=== PATIENT | female | born 1965 | race Caucasian/White ===

== ENCOUNTER 2017-08-31 17:59 | Emergency (ER) | payer BC, MEDICAID ==
[2017-08-31 18:16] VITALS: BP 201/126
[2017-08-31] MEDS ORDERED: Lactated Ringers 1,000 ML IV ONE (18:39)
[2017-08-31] MEDS ORDERED: Sodium Chloride 0.9% 10 ML Syringe FLUSH PRN (18:40)
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
[2017-08-31] MEDS ORDERED: Sodium Chloride 0.9% 10 ML Syringe FLUSH ONE (20:16)
[2017-08-31] MEDS ORDERED: Sodium Chloride 0.9% 100 ML IV ONE (20:16)
[2017-08-31] MEDS ORDERED: Iopamidol 612 MG/ML 100 ML Bottle IV SCH (20:30)
[2017-08-31] MEDS ORDERED: Ondansetron 4 MG/2 ML SDV IVPUSH ONE (21:10)
[2017-08-31] MEDS ORDERED: fentaNYL 100 MCG/2 ML SDV IVPUSH ONE (21:10)
== END 2017-08-31 22:24 | disposition home or self-care (01) ==
LOC: JP.ED 17:59
DX: S22.21XA Fracture of manubrium, initial encounter for closed fracture (principal); S22.43XA Multiple fractures of ribs, bilateral, initial encounter for closed fracture; S42.031A Displaced fracture of lateral end of right clavicle, initial encounter for closed fracture; I10 Essential (primary) hypertension; F17.210 Nicotine dependence, cigarettes, uncomplicated; Z88.1 Allergy status to other antibiotic agents; V39.9XXA Occupant (driver) (passenger) of three-wheeled motor vehicle injured in unspecified traffic accident, initial encounter
CPT/HCPCS: 36415; 71260; 80048; 85025; 96361; 96374; 96375; 99285; J2405; J3010; J7030; J7050; J7120; Q9967

== ENCOUNTER 2017-09-05 12:00 | Emergency (ER) | payer SELFPAY ==
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
[2017-09-05] MEDS ORDERED: Sodium Chloride 0.9% 1,000 ML IV SCH (13:00)
[2017-09-05] MEDS ORDERED: Iopamidol 612 MG/ML 100 ML Bottle IV PRN (13:29)
[2017-09-05] MEDS ORDERED: Sodium Chloride 0.9% 10 ML Syringe FLUSH PRN (13:29)
[2017-09-05] MEDS ORDERED: Ondansetron 4 MG Tab.DIS PO ONE (13:35)
[2017-09-05 13:53] VITALS: BP 147/83
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
[2017-09-05] MEDS ORDERED: Bisacodyl 10 MG Supp RECTAL ONE (14:48)
== END 2017-09-05 15:17 | disposition home or self-care (01) ==
LOC: JP.ED 12:00
DX: K56.7 Ileus, unspecified (principal); I10 Essential (primary) hypertension; Z88.1 Allergy status to other antibiotic agents; Z88.5 Allergy status to narcotic agent; Z79.899 Other long term (current) drug therapy
CPT/HCPCS: 36415; 74177; 80048; 85025; 96360; 99284; A9270; J7030; J7050; Q9967

== ENCOUNTER 2017-09-05 22:09 | Emergency (ER) | payer MEDICAID ==
[2017-09-05 22:22] VITALS: BP 158/92
[2017-09-05] MEDS ORDERED: Simethicone 80 MG Tab.Chew PO ONE (23:21)
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
== END 2017-09-06 00:52 | disposition home or self-care (01) ==
LOC: JP.ED 22:09
DX: K56.7 Ileus, unspecified (principal); F17.210 Nicotine dependence, cigarettes, uncomplicated; Z88.5 Allergy status to narcotic agent; Z79.899 Other long term (current) drug therapy
CPT/HCPCS: 99284; A9270

== ENCOUNTER 2017-09-13 14:51 | Emergency (ER) | payer SELFPAY ==
[2017-09-13] MEDS ORDERED: Sodium Chloride 0.9% 10 ML Syringe FLUSH PRN (16:05)
[2017-09-13] MEDS ORDERED: Sodium Chloride 0.9% 1,000 ML IV SCH (16:15)
[2017-09-13] MEDS ORDERED: Sodium Chloride 0.9% 100 ML IV ONE (16:52)
[2017-09-13] MEDS ORDERED: Sodium Chloride 0.9% 10 ML Syringe FLUSH ONE (16:52)
[2017-09-13] MEDS ORDERED: Ondansetron 4 MG/2 ML SDV IVPUSH PRN (16:56)
[2017-09-13] MEDS ORDERED: Iopamidol 612 MG/ML 150 ML Bottle IV SCH (17:00)
[2017-09-13] MEDS: Sodium Chloride 0.9% 1,000 ML IV SCH ×2 (17:06→17:37)
[2017-09-13] MEDS ORDERED: Sodium Chloride 0.9% 1,000 ML IV ONE ×2 (17:23→17:34)
[2017-09-13] MEDS ORDERED: Norepinephrine 4 MG in Dextrose 5% in Water 246 ML IV SCH ×2 (18:00)
[2017-09-13] MEDS ORDERED: Potassium Chloride 40 MEQ in Premix Bag 1 BAG IV ONE (18:11)
[2017-09-13 18:20] VITALS: BP 86/44
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
== END 2017-09-13 18:42 ==
LOC: JP.ED 14:51
DX: I95.89 Other hypotension (principal); N17.9 Acute kidney failure, unspecified; E87.6 Hypokalemia; I10 Essential (primary) hypertension; F17.210 Nicotine dependence, cigarettes, uncomplicated; Z88.8 Allergy status to other drugs, medicaments and biological substances; Z79.899 Other long term (current) drug therapy
CPT/HCPCS: 36415; 71260; 74177; 80053; 82803; 83605; 85025; 85610; 85730; 86850; 86900; 86901; 86920; 86922; 96361; 96374; 96375; 99285; J2405; J3480; J7030; J7050; J7060

== ENCOUNTER 2017-11-05 11:39 | Emergency (ER) | payer MEDICAID ==
[2017-11-05] MEDS ORDERED: Ondansetron 4 MG/2 ML SDV IVPUSH ONE (13:57)
[2017-11-05] MEDS ORDERED: Potassium Chloride 20 MEQ in Premix Bag 1 BAG IV ONE (13:58)
[2017-11-05] MEDS ORDERED: Sodium Chloride 0.9% 1,000 ML IV SCH (14:00)
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
[2017-11-05 18:28] VITALS: BP 148/81
--- NOTE | 2017-11-06 09:39 | US ---
Abdomen Ltd CLINICAL HISTORY: Elevated liver enzymes FINDINGS: Real-time images show homogeneous echotexture throughout the liver. It is normal size and s hape. There is no biliary dilatation. There is normal flow in the portal vein. The gallbladder appear s slightly contracted. There is no mass or stones. Common bile duct measures 5 mm. Pancreas shows no mass. IMPRESSION: Slightly contracted gallbladder of questionable significance Normal appearing liver and biliary tree
== END 2017-11-05 18:35 | disposition home or self-care (01) ==
LOC: JP.ED 11:39
DX: E87.6 Hypokalemia (principal); E05.90 Thyrotoxicosis, unspecified without thyrotoxic crisis or storm; F41.9 Anxiety disorder, unspecified; E83.42 Hypomagnesemia; I10 Essential (primary) hypertension; F17.210 Nicotine dependence, cigarettes, uncomplicated; Z88.8 Allergy status to other drugs, medicaments and biological substances; Z79.899 Other long term (current) drug therapy
CPT/HCPCS: 36415; 76705; 80053; 81001; 83690; 83735; 84443; 84484; 85025; 93005; 96365; 96366; 96375; 99284; G0480; J2405; J3480; J7030; 93010

== ENCOUNTER 2017-11-17 17:55 | Inpatient (IN) | payer MEDICAID ==
[2017-11-17] MEDS ORDERED: Ondansetron 4 MG/2 ML SDV IVPUSH ONE (18:52)
[2017-11-17] MEDS ORDERED: Lactated Ringers 1,000 ML IV ONE ×2 (18:52→20:13)
[2017-11-17] MEDS: Sodium Chloride 0.9% 10 ML Syringe FLUSH PRN ×2 (19:03→21:06)
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
[2017-11-17] MEDS ORDERED: Sodium Chloride 0.9% 80 ML IV SCH (20:30)
[2017-11-17] MEDS ORDERED: Iopamidol 612 MG/ML 100 ML Bottle IV SCH (20:30)
[2017-11-17] MEDS ORDERED: Morphine 2 MG/ML Syringe IVPUSH PRN (22:47)
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
[2017-11-17] MEDS ORDERED: Magnesium Sulfate/Water 2 GM in Premix Bag 1 BAG IV ONE (23:00)
[2017-11-17] MEDS: Sodium Chloride 0.9% 1,000 ML IV SCH (23:25)
[2017-11-17] MEDS ORDERED: Ondansetron 4 MG/2 ML SDV IVPUSH PRN (23:36)
[2017-11-18] MEDS: Sodium Chloride 0.9% 1,000 ML IV SCH (05:31)
[2017-11-18] MEDS ORDERED: Naloxone 0.4 MG/ML SDV IV PRN (07:30)
[2017-11-18] MEDS ORDERED: HYDROmorphone/Normal Saline 15 MG/30 ML PCA IV PRN (07:30)
[2017-11-18] MEDS ORDERED: Bisacodyl 5 MG Tab PO ONE ×2 (09:00→20:00)
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
[2017-11-18] MEDS: Pantoprazole 40 MG Vial IVPUSH SCH ×2 (09:17→19:19)
[2017-11-18] MEDS: Dextrose 5%-0.9% NaCl with KCl 1,000 ML IV SCH ×2 (09:21→16:55)
[2017-11-18] MEDS: Magnesium Sulfate/Water 2 GM in Premix Bag 1 BAG IV SCH ×4 (10:27→21:38)
--- NOTE | 2017-11-18 10:50 | PCM.PN ---
- General Info Date of Service: 11/18/17 Functional Status: Reports: Pain Controlled, Tolerating Diet - Review of Systems General: Denies: Fever Gastrointestinal: Denies: Abdominal Pain, Diarrhea Systems Review Comment:: No acute events since the time of admission. The patient has not had any diarrhea or nausea. She reports very mild left-sided abdominal discomfort but does not call it pain. She has been tolerating her diet. She has not had any fevers. Sodium has improved since yesterday with hydration overnight. - Patient Data Vitals - Most Recent: Last Vital Signs Temp 36.4 C 11/18/17 07:00 Pulse 88 11/18/17 07:00 Resp 16 11/18/17 07:00 BP 136/86 11/18/17 07:00 Pulse Ox 97 11/18/17 07:05 Weight - Most Recent: 62.142 kg I&O - Last 24 Hours: Intake & Output 11/17/17 11/18/17 11/18/17 22:59 06:59 14:59 Intake Total 900 577 Output Total 1500 Balance -600 577 Lab Results Last 24 Hours: Laboratory Results - last 24 hr 11/17/17 11/17/17 11/17/17 Range/Units 19:06 19:06 19:06 WBC 7.3 (4.5-11.0) K/uL RBC 4.32 (3.30-5.50) M/uL Hgb 13.8 (12.0-15.0) g/dL Hct 40.2 (36.0-48.0) % MCV 93 (80-98) fL MCH 32 H (27-31) pg MCHC 34 (32-36) % Plt Count 256 (150-400) K/uL Neut % (Auto) 77 H (36-66) % Lymph % (Auto) 13 L (24-44) % [place] % (Auto) 10 H (2-6) % Eos % (Auto) 0 L (2-4) % Baso % (Auto) 0 (0-1) % ESR (0-25) mm/hr Sodium 120 L (140-148) mmol/L Potassium 4.1 (3.6-5.2) mmol/L Chloride 86 L (100-108) mmol/L Carbon Dioxide 23 (21-32) mmol/L Anion Gap 15.1 H (5.0-14.0) mmol/L BUN 7 D (7-18) mg/dL Creatinine 1.0 (0.6-1.0) mg/dL Est Cr Clr Drug Dosing 50.22 mL/min Estimated GFR (MDRD) 58 L (>60) Glucose 99 (74-106) mg/dL Calcium 8.0 L (8.5-10.1) mg/dL Phosphorus (2.5-4.9) mg/dL Magnesium 1.0 L (1.8-2.4) mg/dL Total Bilirubin 1.0 (0.2-1.0) mg/dL AST 52 H (15-37) U/L ALT 42 (12-78) U/L Alkaline Phosphatase 187 H (46-116) U/L Creatine Kinase (26-192) U/L Troponin I (0.000-0.056) ng/mL C-Reactive Protein (0.0-0.3) mg/dL Total Protein 6.6 (6.4-8.2) g/dL Albumin 2.9 L (3.4-5.0) g/dL Globulin 3.7 H (2.3-3.5) g/dL Albumin/Globulin Ratio 0.8 L (1.2-2.2) Lipase (73-393) U/L TSH, Ultra Sensitive 1.430 (0.358-3.740) uIU/mL Urine Color Urine Appearance Urine pH (4.5-8.0) Ur Specific [place] (1.008-1.030) Urine Protein (NEGATIVE) mg/dL Urine Glucose (UA) (NEGATIVE) mg/dL Urine Ketones (NEGATIVE) mg/dL Urine Occult Blood (NEGATIVE) Urine Nitrite (NEGATIVE) Urine Bilirubin (NEGATIVE) Urine Urobilinogen (NORMAL) mg/dL Ur Leukocyte Esterase (NEGATIVE) Urine RBC (0-5) Urine WBC (0-5) Ur Epithelial Cells Amorphous Sediment Urine Bacteria Urine Mucus Ur Random Creatinine (20.0-370.0) mg/dL Ur Random Sodium (20-110) mmol/L 11/17/17 11/17/17 11/17/17 Range/Units 19:13 19:49 20:44 WBC (4.5-11.0) K/uL RBC (3.30-5.50) M/uL Hgb (12.0-15.0) g/dL Hct (36.0-48.0) % MCV (80-98) fL MCH (27-31) pg MCHC (32-36) % Plt Count (150-400) K/uL Neut % (Auto) (36-66) % Lymph % (Auto) (24-44) % [place] % (Auto) (2-6) % Eos % (Auto) (2-4) % Baso % (Auto) (0-1) % ESR (0-25) mm/hr Sodium (140-148) mmol/L Potassium (3.6-5.2) mmol/L Chloride (100-108) mmol/L Carbon Dioxide (21-32) mmol/L Anion Gap (5.0-14.0) mmol/L BUN (7-18) mg/dL Creatinine (0.6-1.0) mg/dL Est Cr Clr Drug Dosing mL/min Estimated GFR (MDRD) (>60) Glucose (74-106) mg/dL Calcium (8.5-10.1) mg/dL Phosphorus (2.5-4.9) mg/dL Magnesium (1.8-2.4) mg/dL Total Bilirubin (0.2-1.0) mg/dL AST (15-37) U/L ALT (12-78) U/L Alkaline Phosphatase (46-116) U/L Creatine Kinase 73 (26-192) U/L Troponin I < 0.017 (0.000-0.056) ng/mL C-Reactive Protein (0.0-0.3) mg/dL Total Protein (6.4-8.2) g/dL Albumin (3.4-5.0) g/dL Globulin (2.3-3.5) g/dL Albumin/Globulin Ratio (1.2-2.2) Lipase (73-393) U/L TSH, Ultra Sensitive (0.358-3.740) uIU/mL Urine Color Yellow Urine Appearance Clear Urine pH 6.0 (4.5-8.0) Ur Specific [place] 1.010 (1.008-1.030) Urine Protein Negative (NEGATIVE) mg/dL Urine Glucose (UA) Normal (NEGATIVE) mg/dL Urine Ketones Negative (NEGATIVE) mg/dL Urine Occult Blood Negative (NEGATIVE) Urine Nitrite Negative (NEGATIVE) Urine Bilirubin Negative (NEGATIVE) Urine Urobilinogen Normal (NORMAL) mg/dL Ur Leukocyte Esterase Negative (NEGATIVE) Urine RBC 0-5 (0-5) Urine WBC 0-5 (0-5) Ur Epithelial Cells Rare Amorphous Sediment Not seen Urine Bacteria Rare Urine Mucus Not seen Ur Random Creatinine (20.0-370.0) mg/dL Ur Random Sodium (20-110) mmol/L 11/17/17 11/17/17 11/17/17 Range/Units 22:47 22:47 22:54 WBC (4.5-11.0) K/uL RBC (3.30-5.50) M/uL Hgb (12.0-15.0) g/dL Hct (36.0-48.0) % MCV (80-98) fL MCH (27-31) pg MCHC (32-36) % Plt Count (150-400) K/uL Neut % (Auto) (36-66) % Lymph % (Auto) (24-44) % [place] % (Auto) (2-6) % Eos % (Auto) (2-4) % Baso % (Auto) (0-1) % ESR 10 (0-25) mm/hr Sodium (140-148) mmol/L Potassium (3.6-5.2) mmol/L Chloride (100-108) mmol/L Carbon Dioxide (21-32) mmol/L Anion Gap (5.0-14.0) mmol/L BUN (7-18) mg/dL Creatinine (0.6-1.0) mg/dL Est Cr Clr Drug Dosing mL/min Estimated GFR (MDRD) (>60) Glucose (74-106) mg/dL Calcium (8.5-10.1) mg/dL Phosphorus (2.5-4.9) mg/dL Magnesium (1.8-2.4) mg/dL Total Bilirubin (0.2-1.0) mg/dL AST (15-37) U/L ALT (12-78) U/L Alkaline Phosphatase (46-116) U/L Creatine Kinase (26-192) U/L Troponin I (0.000-0.056) ng/mL C-Reactive Protein 0.32 H (0.0-0.3) mg/dL Total Protein (6.4-8.2) g/dL Albumin (3.4-5.0) g/dL Globulin (2.3-3.5) g/dL Albumin/Globulin Ratio (1.2-2.2) Lipase (73-393) U/L TSH, Ultra Sensitive (0.358-3.740) uIU/mL Urine Color Urine Appearance Urine pH (4.5-8.0) Ur Specific [place] (1.008-1.030) Urine Protein (NEGATIVE) mg/dL Urine Glucose (UA) (NEGATIVE) mg/dL Urine Ketones (NEGATIVE) mg/dL Urine Occult Blood (NEGATIVE) Urine Nitrite (NEGATIVE) Urine Bilirubin (NEGATIVE) Urine Urobilinogen (NORMAL) mg/dL Ur Leukocyte Esterase (NEGATIVE) Urine RBC (0-5) Urine WBC (0-5) Ur Epithelial Cells Amorphous Sediment Urine Bacteria Urine Mucus Ur Random Creatinine (20.0-370.0) mg/dL Ur Random Sodium 11 L (20-110) mmol/L 11/17/17 11/17/17 11/17/17 Range/Units 23:02 23:03 23:19 WBC (4.5-11.0) K/uL RBC (3.30-5.50) M/uL Hgb (12.0-15.0) g/dL Hct (36.0-48.0) % MCV (80-98) fL MCH (27-31) pg MCHC (32-36) % Plt Count (150-400) K/uL Neut % (Auto) (36-66) % Lymph % (Auto) (24-44) % [place] % (Auto) (2-6) % Eos % (Auto) (2-4) % Baso % (Auto) (0-1) % ESR (0-25) mm/hr Sodium (140-148) mmol/L Potassium (3.6-5.2) mmol/L Chloride (100-108) mmol/L Carbon Dioxide (21-32) mmol/L Anion Gap (5.0-14.0) mmol/L BUN (7-18) mg/dL Creatinine (0.6-1.0) mg/dL Est Cr Clr Drug Dosing mL/min Estimated GFR (MDRD) (>60) Glucose (74-106) mg/dL Calcium (8.5-10.1) mg/dL Phosphorus 3.9 (2.5-4.9) mg/dL Magnesium (1.8-2.4) mg/dL Total Bilirubin (0.2-1.0) mg/dL AST (15-37) U/L ALT (12-78) U/L Alkaline Phosphatase (46-116) U/L Creatine Kinase (26-192) U/L Troponin I (0.000-0.056) ng/mL C-Reactive Protein (0.0-0.3) mg/dL Total Protein (6.4-8.2) g/dL Albumin (3.4-5.0) g/dL Globulin (2.3-3.5) g/dL Albumin/Globulin Ratio (1.2-2.2) Lipase 63 L (73-393) U/L TSH, Ultra Sensitive (0.358-3.740) uIU/mL Urine Color Urine Appearance Urine pH (4.5-8.0) Ur Specific [place] (1.008-1.030) Urine Protein (NEGATIVE) mg/dL Urine Glucose (UA) (NEGATIVE) mg/dL Urine Ketones (NEGATIVE) mg/dL Urine Occult Blood (NEGATIVE) Urine Nitrite (NEGATIVE) Urine Bilirubin (NEGATIVE) Urine Urobilinogen (NORMAL) mg/dL Ur Leukocyte Esterase (NEGATIVE) Urine RBC (0-5) Urine WBC (0-5) Ur Epithelial Cells Amorphous Sediment Urine Bacteria Urine Mucus Ur Random Creatinine 16.7 L (20.0-370.0) mg/dL Ur Random Sodium (20-110) mmol/L 11/18/17 11/18/17 Range/Units 05:15 05:15 WBC 6.1 (4.5-11.0) K/uL RBC 3.58 (3.30-5.50) M/uL Hgb 11.5 L D (12.0-15.0) g/dL Hct 34.1 L (36.0-48.0) % MCV 95 (80-98) fL MCH 32 H (27-31) pg MCHC 34 (32-36) % Plt Count 244 (150-400) K/uL Neut % (Auto) 68 H (36-66) % Lymph % (Auto) 17 L (24-44) % [place] % (Auto) 14 H (2-6) % Eos % (Auto) 1 L (2-4) % Baso % (Auto) 1 (0-1) % ESR (0-25) mm/hr Sodium 130 L (140-148) mmol/L Potassium 3.8 (3.6-5.2) mmol/L Chloride 98 L (100-108) mmol/L Carbon Dioxide 25 (21-32) mmol/L Anion Gap 10.8 (5.0-14.0) mmol/L BUN 7 (7-18) mg/dL Creatinine 1.0 (0.6-1.0) mg/dL Est Cr Clr Drug Dosing 50.28 mL/min Estimated GFR (MDRD) 58 L (>60) Glucose 90 (74-106) mg/dL Calcium 7.8 L (8.5-10.1) mg/dL Phosphorus 3.8 (2.5-4.9) mg/dL Magnesium 2.1 D (1.8-2.4) mg/dL Total Bilirubin (0.2-1.0) mg/dL AST (15-37) U/L ALT (12-78) U/L Alkaline Phosphatase (46-116) U/L Creatine Kinase (26-192) U/L Troponin I (0.000-0.056) ng/mL C-Reactive Protein (0.0-0.3) mg/dL Total Protein (6.4-8.2) g/dL Albumin (3.4-5.0) g/dL Globulin (2.3-3.5) g/dL Albumin/Globulin Ratio (1.2-2.2) Lipase (73-393) U/L TSH, Ultra Sensitive (0.358-3.740) uIU/mL Urine Color Urine Appearance Urine pH (4.5-8.0) Ur Specific [place] (1.008-1.030) Urine Protein (NEGATIVE) mg/dL Urine Glucose (UA) (NEGATIVE) mg/dL Urine Ketones (NEGATIVE) mg/dL Urine Occult Blood (NEGATIVE) Urine Nitrite (NEGATIVE) Urine Bilirubin (NEGATIVE) Urine Urobilinogen (NORMAL) mg/dL Ur Leukocyte Esterase (NEGATIVE) Urine RBC (0-5) Urine WBC (0-5) Ur Epithelial Cells Amorphous Sediment Urine Bacteria Urine Mucus Ur Random Creatinine (20.0-370.0) mg/dL Ur Random Sodium (20-110) mmol/L Med Orders - Current: Current Medications Bisacodyl (Dulcolax) 10 mg PO ONETIME ONE Stop: 11/18/17 20:01 Glycopyrrolate (Glycopyrrolate) 0.4 mg IVPUSH ONCALL ONE Stop: 11/19/17 07:01 Hydromorphone HCl (Dilaudid Sales Management Trainee 15 Mg In Ns 30 Ml) 0 mg IV ASDIRECTED PRN; Protocol PRN Reason: [employer]MB[employer] PAIN CONTROL Potassium Chloride/Dextrose/Sod Cl (D5 Ns With 20 Meq Kcl) 1,000 mls @ 125 mls/ hr IV ASDIRECTED [facility] Last Admin: 11/18/17 09:21 Dose: 125 mls/hr Magnesium Sulfate 2 gm/ Premix 50 mls @ 25 mls/hr IV Q4H [facility] Stop: 11/20/17 07:59 Last Admin: 11/18/17 10:27 Dose: 25 mls/hr Naloxone HCl (Narcan) 0.1 mg IV ASDIRECTED PRN PRN Reason: decreased respiratory rate Ondansetron HCl (Zofran) 4 mg IVPUSH Q6H PRN PRN Reason: Nausea/Vomiting Last Admin: 11/18/17 03:34 Dose: 4 mg Pantoprazole Sodium (Protonix Iv) 40 mg IVPUSH Q12H [facility] Last Admin: 11/18/17 09:17 Dose: 40 mg Polyethylene Glycol (Miralax) 238 gm PO ONETIME ONE Stop: 11/18/17 17:01 Discontinued Medications Bisacodyl (Dulcolax) 10 mg PO ONETIME ONE Stop: 11/18/17 09:01 Last Admin: 11/18/17 09:16 Dose: 10 mg Lactated Ringer's (Ringers, Lactated) 1,000 mls @ 999 mls/hr IV BOLUS ONE Stop: 11/17/17 19:52 Last Admin: 11/17/17 19:03 Dose: 999 mls/hr Lactated Ringer's (Ringers, Lactated) 1,000 mls @ 500 mls/hr IV BOLUS ONE Stop: 11/17/17 22:12 Last Admin: 11/17/17 20:17 Dose: 500 mls/hr Sodium Chloride (Normal Saline) 80 mls @ 3 mls/sec IV ASDIRECTED [facility] Last Admin: 11/17/17 21:06 Dose: 3 mls/sec Magnesium Sulfate 2 gm/ Premix 50 mls @ 12.5 mls/hr IV ONETIME ONE Stop: 11/18/17 02:59 Last Admin: 11/18/17 00:24 Dose: 12.5 mls/hr Sodium Chloride (Normal Saline) 1,000 mls @ 150 mls/hr IV ASDIRECTED [facility] Last Admin: 11/18/17 05:31 Dose: 150 mls/hr Iopamidol (Isovue-300 (61%)) 100 ml IV . DIRECTED [facility] Stop: 11/18/17 08:00 Last Admin: 11/17/17 21:06 Dose: 100 ml Morphine Sulfate (Morphine) 2 mg IVPUSH Q2H PRN PRN Reason: Pain (severe 7-10) Ondansetron HCl (Zofran) 4 mg IVPUSH ONETIME ONE Stop: 11/17/17 18:53 Last Admin: 11/17/17 19:02 Dose: 4 mg Sodium Chloride (Saline Flush) 10 ml FLUSH ASDIRECTED PRN PRN Reason: Keep Vein Open Last Admin: 11/17/17 21:06 Dose: 10 ml - Exam Quality Assessment: No: Supplemental Oxygen General: Alert, Oriented, Cooperative, No Acute Distress Lungs: Normal Respiratory Effort Cardiovascular: Regular Rate, Regular Rhythm GI/Abdominal Exam: Normal Bowel Sounds, Soft, Non-Tender, No Distention, No Mass Extremities: No Pedal Edema Psy/Mental Status: Alert, Normal Affect - Problem List & Annotations (1) Hyponatremia SNOMED Code(s): 04832395 Code(s): E87.1 - HYPO-OSMOLALITY AND HYPONATREMIA Status: Acute Current Visit: Yes (2) Chronic diarrhea SNOMED Code(s): 895054975 Code(s): K52.9 - NONINFECTIVE GASTROENTERITIS AND COLITIS, UNSPECIFIED Status: Chronic Current Visit: Yes (3) Abdominal pain SNOMED Code(s): 77346895 Code(s): R10.9 - UNSPECIFIED ABDOMINAL PAIN Status: Acute Current Visit: Yes Qualifiers: Abdominal location: left upper quadrant Qualified Code(s): R10.12 - Left upper quadrant pain (4) Acquired hypothyroidism SNOMED Code(s): 622463280 Code(s): E03.9 - HYPOTHYROIDISM, UNSPECIFIED Status: Chronic Current Visit: Yes - Problem List Review Problem List Initiated/Reviewed/Updated: Yes - My Orders Last 24 Hours: My Active Orders 11/18/17 10:48 Discontinue Telemetry Monitoring [Cardiac Monitoring Discontinue] [RC] Click to Edit - Plan Plan:: ASSESSMENT AND PLAN - Chronic diarrhea - associated with some left-sided abdominal discomfort and bloating, especially after meals. CT scan was unremarkable. She did have a positive lactoferrin in her recent stool studies. Colonoscopy is planned for tomorrow. Differential would include inflammatory bowel disease such as Crohn's disease versus possibly biliary dyskinesia. -Colonoscopy prep today and colonoscopy tomorrow with Dr. Pike -Consider HIDA scan if colonoscopy unremarkable Hypovolemic hyponatremia - sodium level improved quickly with IV fluids overnight. -Continue gentle IV fluids today and repeat level in the morning Hypomagnesemia - likely related to chronic diarrhea. Level is improving with supplementation. -Additional supplementation as ordered Acquired hypothyroidism - no symptoms to suggest hypo-or hyper thyroid state. Most recent TSH was normal. Essential hypertension - blood pressure controlled with current use of ARB. Maintenance issues - - DVT prophylaxis - mechanical - GI prophylaxis - not indicated - Nutrition - clear liquids today and nothing by mouth after midnight Admission justification - patient was transitioned to inpatient status today for further workup and management. Disposition - anticipate discharge to home tomorrow Ruslan Sarabia M.D.
[2017-11-18] MEDS: Polyethylene Glycol 3350 Powder 238 GM Bot PO ONE ×2 (14:41→16:31)
[2017-11-19] MEDS: Dextrose 5%-0.9% NaCl with KCl 1,000 ML IV SCH (01:02)
[2017-11-19] MEDS: Magnesium Sulfate/Water 2 GM in Premix Bag 1 BAG IV SCH ×4 (01:02→11:11)
[2017-11-19] MEDS ORDERED: fentaNYL 100 MCG/2 ML SDV ONE (06:53)
[2017-11-19] MEDS ORDERED: Propofol 200 MG/20 ML SDV ONE (06:53)
[2017-11-19] MEDS ORDERED: Midazolam 1 MG/ML 2 ML SDV ONE (06:53)
[2017-11-19] MEDS ORDERED: Glycopyrrolate 0.2 MG/ML 2 ML SDV IVPUSH ONE (07:00)
--- NOTE | 2017-11-19 08:52 | PN ---
DATE OF SERVICE: 11/19/2017 HISTORY OF PRESENT ILLNESS: Mary is n.p.o. for an upper endoscopy and colonoscopy. She has completed her prep. Stools have been clear. Sodium this morning was 134 and hemoglobin was 11.2. REVIEW OF SYSTEMS: ABDOMEN: Denies any nausea or vomiting. No red or black stools. HEENT: Negative. NECK: Negative. CHEST: No chest pain, shortness of breath, fast or irregular heartbeat. LUNGS: Has some pain in the left rib area with deep breathing. : Negative. EXTREMITIES: Negative. SKIN: Without rash. NEURO: Intact. PSYCHIATRIC: Mood and affect appropriate. Remainder of review of systems negative for any pertinent positives and negatives. OBJECTIVE: GENERAL: Mary Garcia is a 52-year-old female, alert and orientated, and sitting inside of the bed. VITAL SIGNS: TPR 96.5, 113, 16, and blood pressure 171/106. HEENT: Negative. NECK: Supple. HEART: Regular rate and rhythm. LUNGS: Clear. ABDOMEN: Soft, nontender. EXTREMITIES: Negative. ASSESSMENT: 1. Chronic diarrhea. 2. Hyponatremia. 3. Abdominal pain. PLAN: Orders to be written post upper endoscopy and colonoscopy. We will evaluate p.r.n. or in a.m. Meseret Levy PA-C /[id number]
[2017-11-19] MEDS: Pantoprazole 40 MG Vial IVPUSH SCH ×2 (09:01→11:11)
[2017-11-19] MEDS ORDERED: Non-Formulary Medication 1 Each (Levothyroxine Sodium [Synthroid] 137 MCG) PO SCH (09:30)
[2017-11-19] MEDS ORDERED: Losartan 50 MG Tab PO SCH (10:00)
[2017-11-19] MEDS ORDERED: Pantoprazole 40 MG Tab.CR PO SCH (10:30)
[2017-11-19] MEDS ORDERED: predniSONE 20 MG Tab PO ONE (10:30)
[2017-11-19 12:19] VITALS: BP 160/94
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
--- NOTE | 2017-11-21 12:56 | OR ---
DATE OF PROCEDURE: 11/19/2017 PREOPERATIVE DIAGNOSES: Abdominal pain and diarrhea. POSTOPERATIVE DIAGNOSES: 1. Esophagogastroduodenoscopy showing;. a. Ulcerative esophagitis with small hiatal hernia. b. Erosive antral gastritis. 2. Colonoscopy showing;. a. Marked colitis beginning 50 cm (mid-sigmoid colon) extending into splenic flexure. OPERATIVE PROCEDURES: 1. Esophagogastroduodenoscopy with;. a. Biopsies of esophagogastric junction for histologic evaluation. b. Biopsies of antrum for CLOtest. 2. Flexible colonoscopy with biopsies of areas of colitis involving descending and sigmoid colon. ANESTHESIA: IV sedation. INDICATION FOR PROCEDURE: This 52-year-old is presenting with a picture of abdominal pain and frequent loose bowel movements. The plan is to proceed with upper and lower endoscopies with biopsies as indicated. Potential risks including bleeding and perforation were discussed, and the patient wishes to proceed. DETAILS OF PROCEDURE: The patient was taken to the operating room and placed in a left lateral decubitus position. IV sedation was administered, after which the upper GI endoscope was passed orally through the length of the esophagus and into the stomach with retroflexion view of the fundus, thereafter through the pyloric channel and into the junction of the third and fourth portions of the duodenum. Findings included markedly ulcerated esophagitis associated with small hiatal hernia. Photodocumentation was obtained. The remainder of the stomach showed some erosive antral gastritis. The visualized portion of the pyloric channel and duodenum were unremarkable. At this point, biopsies were obtained from the antrum and sent for CLOtest for H. pylori. Multiple biopsies were then obtained from the distal esophagus and sent for histologic evaluation. Minimal bleeding from the biopsy sites was seen, and the procedure then concluded. Attention was then taken to the colonoscopy. The colonoscope was then passed into the rectum, after initial digital rectal exam was performed and it was unremarkable. Retroflexion revealed uncomplicated hemorrhoidal columns. The lower rectum and colon were unremarkable, however, around 50 cm, the patient developed a fairly marked colitis. Photodocumentation of this was also obtained. This extended up to the splenic flexure after which the mucosa became normal in appearance for the remainder of the examination. Biopsies were then obtained from the descending and sigmoid colons and sent for histologic evaluation. The scope was then withdrawn, and the procedure then concluded. The patient obviously has quite significant problems with esophagitis and would continue the proton pump inhibitor use. The colitis pattern would be suggestive of probable Crohn disease as there was rectal sparing in this case, biopsies obviously are pending. The patient was taken to the recovery room in a satisfactory condition. One additional adjunct on this, we will have Dietary see the patient regarding dietary recommendations in a patient with a diagnosis of probable Crohn disease. Adi Pike MD /[id number]
== END 2017-11-19 13:54 | disposition home or self-care (01) | DRG 381 ==
LOC: JP.ED 17:55 → JP.MS 22:47 → OBSVTOIN 11-18 07:24
PROVIDERS: ADMIT Family Medicine; ATTEND Internal Medicine
PROC: 0DB68ZX Excision of Stomach, Via Natural or Artificial Opening Endoscopic, Diagnostic (ICD-10-PCS; principal; 2017-11-19)
PROC: 0DB58ZX Excision of Esophagus, Via Natural or Artificial Opening Endoscopic, Diagnostic (ICD-10-PCS; 2017-11-19)
PROC: 0DBM8ZX Excision of Descending Colon, Via Natural or Artificial Opening Endoscopic, Diagnostic (ICD-10-PCS; 2017-11-19)
PROC: 0DBN8ZX Excision of Sigmoid Colon, Via Natural or Artificial Opening Endoscopic, Diagnostic (ICD-10-PCS; 2017-11-19)
DX: K22.10 Ulcer of esophagus without bleeding (principal); E87.1 Hypo-osmolality and hyponatremia; K50.10 Crohn's disease of large intestine without complications; K29.60 Other gastritis without bleeding; K44.9 Diaphragmatic hernia without obstruction or gangrene; E83.42 Hypomagnesemia; K52.9 Noninfective gastroenteritis and colitis, unspecified; F17.210 Nicotine dependence, cigarettes, uncomplicated; I10 Essential (primary) hypertension; E03.9 Hypothyroidism, unspecified; K29.70 Gastritis, unspecified, without bleeding; E86.0 Dehydration; Z85.41 Personal history of malignant neoplasm of cervix uteri; Z88.1 Allergy status to other antibiotic agents; Z79.52 Long term (current) use of systemic steroids
CPT/HCPCS: 36415; 74177; 80048; 80053; 81001; 82550; 82570; 83690; 83735; 83930; 83935; 84100; 84300; 84443; 84484; 85025; 85027; 85651; 86140; 87081; 88305; 88312; 96361; 96365; 96366; 96375; 96376; 99285-25; A9270-GY; C9113; J2250; J2405; J2704; J3010; J3475; J3480; J3490; J7030; J7050; J7120; Q9967

== ENCOUNTER 2017-11-20 03:17 | Emergency (ER) | payer MEDICAID ==
[2017-11-20 03:53] VITALS: BP 202/108
[2017-11-20] MEDS ORDERED: Sodium Chloride 0.9% 1,000 ML IV ONE (04:04)
[2017-11-20] MEDS ORDERED: Metoclopramide 10 MG/2 ML SDV IVPUSH ONE (04:05)
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
[2017-11-20] MEDS ORDERED: Simethicone 80 MG Tab.Chew PO ONE (04:19)
--- NOTE | 2017-11-20 08:56 | CR ---
Abdomen 1V Upright HISTORY: bloating FINDINGS: Air-fluid levels can be seen in the colon. Loops of colon are mildly distended. Very little small bowel gas can be seen. No mass organomegaly is identified. There is no free intraperitoneal ai r. Bony structures are unremarkable. IMPRESSION: Findings are most suggestive for ileus. Very little small bowel gas can be seen. I cannot entirely exclude small bowel obstruction. Gastroenteritis could also be considered.
== END 2017-11-20 05:43 | disposition home or self-care (01) ==
LOC: JP.ED 03:17
DX: K56.7 Ileus, unspecified (principal); I10 Essential (primary) hypertension; E87.1 Hypo-osmolality and hyponatremia; F17.210 Nicotine dependence, cigarettes, uncomplicated; F41.9 Anxiety disorder, unspecified; E03.9 Hypothyroidism, unspecified; Z79.899 Other long term (current) drug therapy; Z88.1 Allergy status to other antibiotic agents
CPT/HCPCS: 36415; 74018; 74018-26; 80048; 85027; 96361; 96374; 99284-25; A9270-GY; J2765; J7030

== ENCOUNTER 2020-02-09 06:03 | Emergency (ER) | payer MEDICAID ==
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
[2020-02-09] MEDS: Lactated Ringers 1,000 ML IV SCH (07:26)
[2020-02-09] MEDS: Simethicone 80 MG Tab.Chew PO ONE (07:26)
[2020-02-09] MEDS: Acetaminophen 500 MG Tab PO ONE (07:26)
[2020-02-09] MEDS: Metoclopramide 10 MG/2 ML SDV IVPUSH ONE (07:27)
[2020-02-09] MEDS: Bisacodyl 10 MG Supp RECTAL ONE (07:31)
[2020-02-09] MEDS: Metoprolol Tartrate 50 MG Tab PO ONE (07:34)
[2020-02-09] MEDS ORDERED: Potassium Chloride 20 MEQ in Premix Bag 1 BAG IV ONE (07:37)
[2020-02-09] MEDS: Potassium Chloride 10 MEQ Cap.ER PO ONE (07:42)
[2020-02-09] MEDS: Potassium Chloride 20 MEQ, Lidocaine 1% 2 ML in Sodium Chloride 0.9% 100 ML IV ONE (07:49)
[2020-02-09] MEDS: Magnesium Sulfate/Water 2 GM/50 ML BAG IV ONE (07:56)
[2020-02-09] MEDS: Magnesium Oxide 400 MG Tab PO ONE (07:56)
--- NOTE | 2020-02-09 08:48 | CRLCR ---
HISTORY: Nausea and vomiting. Bloating. TECHNIQUE: Flat and upright abdominal radiographs. COMPARISON: No prior. FINDINGS: Mild gas distention of multiple small bowel loops and a portion of the colon. On the upright film, there are a few gas-fluid levels. The findings may reflect the presence of an ileus. A partial obstruction is less likely. There is no free air. Lung bases are clear. IMPRESSION: 1. Mild gas distention of small bowel loops and a portion of the colon with a few gas-fluid levels on the upright film. Findings may reflect an ileus. A partial obstruction is less likely. 2. No free air. Dictated by Caleb Sylvester MD @ 02/09/2020 8:46:37 AM Dictated by: Caleb Sylvester MD @ 02/09/2020 08:46:43 (Electronically Signed)
[2020-02-09] MEDS: NS + KCl 20mEq/L 1,000 ML IV SCH (09:54)
[2020-02-09] MEDS: Metoprolol Tartrate 25 MG Tab PO ONE (11:04)
[2020-02-09 11:35] VITALS: BP 194/103; PULSE 79
== END 2020-02-09 11:44 | disposition home or self-care (01) ==
LOC: JP.ED 06:03
DX: K56.7 Ileus, unspecified (principal); E86.0 Dehydration; E87.6 Hypokalemia; E83.42 Hypomagnesemia; I10 Essential (primary) hypertension; E03.9 Hypothyroidism, unspecified; F17.210 Nicotine dependence, cigarettes, uncomplicated; Z88.1 Allergy status to other antibiotic agents; Z79.899 Other long term (current) drug therapy
CPT/HCPCS: 36415; 74019; 80053; 80305; 83690; 83735; 84132; 84484; 85027; 96365; 96366; 96368; 96375; 99284; A9270; J2001; J2765; J3475; J3480; J7120

== ENCOUNTER 2020-02-22 09:31 | Emergency (ER) | payer MEDICAID ==
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
[2020-02-22 10:54] VITALS: BP 153/99; PULSE 113
== END 2020-02-22 14:01 | disposition other institution (70) ==
LOC: JP.ED 09:31
DX: R29.818 Other symptoms and signs involving the nervous system (principal); R00.0 Tachycardia, unspecified; I10 Essential (primary) hypertension; F41.9 Anxiety disorder, unspecified; E03.9 Hypothyroidism, unspecified; F17.200 Nicotine dependence, unspecified, uncomplicated; Z20.828 Contact with and (suspected) exposure to other viral communicable diseases; Z79.899 Other long term (current) drug therapy; Z88.1 Allergy status to other antibiotic agents
CPT/HCPCS: 36415; 80053; 83735; 84443; 85025; 86140; 99285; U0002

== ENCOUNTER 2021-08-21 11:26 | Inpatient (IN) | payer MEDICAID ==
[2021-08-21] MEDS ORDERED: Sodium Chloride 0.9% 1,000 ML IV ONE (11:30)
[2021-08-21 13:10] LABS: ESTIMATED GFR 102 mL/min (>60)
[2021-08-21 14:22] LABS: CORONAVIRUS COVID-19 NAA NEGATIVE (NEGATIVE)
[2021-08-21] MEDS ORDERED: Sodium Chloride 0.9% 1,000 ML IV SCH (14:45)
[2021-08-21] MEDS: Dextrose 5%-Lact Ringers w/KCl 1,000 ML IV SCH (16:15)
[2021-08-21] MEDS ORDERED: Calcium Gluconate 10% 1 GM/10 ML SDV IVPUSH ONE (16:50)
[2021-08-21] MEDS ORDERED: Acetaminophen 325 MG Tab PO PRN (16:50)
[2021-08-21] MEDS ORDERED: Dimethicone 20%/Zinc Oxide 25% 56 GM Spray Bottle TOP PRN (16:50)
[2021-08-21] MEDS ORDERED: Magnesium Hydroxide 400 MG/5 ML Susp 30 ML Cup PO PRN (16:50)
[2021-08-21] MEDS ORDERED: Ondansetron 4 MG/2 ML SDV IV PRN (16:50)
[2021-08-21] MEDS ORDERED: LORazepam 2 MG/ML SDV IVPUSH PRN (16:50)
[2021-08-21] MEDS ORDERED: Ondansetron 4 MG Tab.DIS PO PRN (16:50)
[2021-08-21] MEDS ORDERED: Albuterol 0.083% 2.5 MG/3 ML Neb Soln NEB PRN (16:50)
[2021-08-21] MEDS: Pantoprazole 40 MG Vial IV SCH (19:21)
[2021-08-21] MEDS: Levothyroxine 100 MCG Vial IVPUSH SCH (19:24)
[2021-08-21] MEDS: Levofloxacin/Dextrose 5%-Water 750 MG in Premix Bag 1 BAG IV SCH (19:26)
[2021-08-21] MEDS: Magnesium Sulfate/Water 2 GM in Premix Bag 1 BAG IV SCH (19:32)
[2021-08-21] MEDS: Potassium Chloride 20 MEQ, Lidocaine 1% 2 ML in Sodium Chloride 0.9% 100 ML IV SCH ×2 (20:12→22:48)
[2021-08-21] MEDS ORDERED: Norepinephrine 4 MG/4 ML SDV ONE (20:29)
[2021-08-21] MEDS ORDERED: Dextrose 5% in Water 250 ML ONE (20:31)
[2021-08-21] MEDS: Norepinephrine Bit/D5W Premix 4 MG in Premix Bag 1 BAG IV SCH (20:43)
[2021-08-21] MEDS ORDERED: MVI, Adult with Vitamin K 10 ML, Thiamine 100 MG, Folic Acid 1 MG, Magnesium Sulfate 3 ... IV ONE ×5 (22:00)
[2021-08-21] MEDS ORDERED: Albumin Human 25 GM in Premix Bag 1 BAG IV SCH (22:00)
[2021-08-22] MEDS: Melatonin 3 MG Tab PO SCH ×2 (00:16→22:22)
[2021-08-22] MEDS ORDERED: Dimethicone 20%/Zinc Oxide 25% 56 GM Spray Bottle TOP ONE (02:21)
[2021-08-22] MEDS: Magnesium Sulfate/Water 2 GM in Premix Bag 1 BAG IV SCH ×3 (02:25→14:34)
[2021-08-22] MEDS: Dextrose 5%-Lact Ringers w/KCl 1,000 ML IV SCH ×2 (05:32→19:59)
[2021-08-22] MEDS ORDERED: Iopamidol 612 MG/ML 100 ML Bottle IV PRN (09:57)
[2021-08-22] MEDS ORDERED: Sodium Chloride 0.9% 50 ML IV SCH (10:00)
[2021-08-22] MEDS: Calcium Gluconate 10% 1 GM/10 ML SDV IVPUSH SCH ×2 (10:30→22:26)
[2021-08-22] MEDS: Albumin Human 25 GM in Premix Bag 1 BAG IV SCH (10:42)
[2021-08-22] MEDS: Albuterol/Ipratropium 3.0-0.5 MG/3 ML Neb Soln NEB SCH ×3 (10:53→22:27)
[2021-08-22] MEDS ORDERED: Furosemide 20 MG/2 ML VIAL IVPUSH ONE (13:20)
[2021-08-22] MEDS ORDERED: Dimethicone 20%/Zinc Oxide 25% 56 GM Spray Bottle TOP PRN (16:50)
[2021-08-22] MEDS: Levofloxacin/Dextrose 5%-Water 750 MG in Premix Bag 1 BAG IV SCH (17:15)
[2021-08-22] MEDS: Pantoprazole 40 MG Vial IV SCH (17:31)
[2021-08-22] MEDS: Levothyroxine 100 MCG Vial IVPUSH SCH (17:36)
[2021-08-23] MEDS ORDERED: levETIRAcetam 500 MG/5 ML SDV ONE (04:06)
[2021-08-23] MEDS ORDERED: Sodium Chloride 0.9% 100 ML ONE (04:07)
[2021-08-23 05:44] LABS: ESTIMATED GFR 67 mL/min (>60)
[2021-08-23] MEDS ORDERED: Bupivacaine 0.5%/EPINEPHrine 1:200,000 50 ML MDV ONE (06:06)
[2021-08-23] MEDS ORDERED: Propofol 200 MG/20 ML SDV ONE (06:35)
[2021-08-23] MEDS ORDERED: Midazolam 1 MG/ML 2 ML SDV ONE (06:53)
[2021-08-23] MEDS: Albuterol/Ipratropium 3.0-0.5 MG/3 ML Neb Soln NEB SCH ×4 (07:55→20:08)
[2021-08-23] MEDS: Norepinephrine Bit/D5W Premix 4 MG in Premix Bag 1 BAG IV SCH ×2 (08:30→21:43)
[2021-08-23] MEDS: Albumin Human 25 GM in Premix Bag 1 BAG IV SCH (09:58)
[2021-08-23] MEDS: Meropenem 1 GM in Sodium Chloride 0.9% 100 ML IV SCH ×2 (11:52→20:05)
[2021-08-23] MEDS: Hypromellose 0.3% Ophth Soln 15 ML Bottle EYEBOTH PRN ×3 (12:57→16:09)
[2021-08-23] MEDS: Dextrose 5%-Lact Ringers w/KCl 1,000 ML IV SCH (15:57)
[2021-08-23] MEDS: Levothyroxine 100 MCG Vial IVPUSH SCH (17:29)
[2021-08-23] MEDS: Pantoprazole 40 MG Vial IV SCH (17:29)
[2021-08-23] MEDS: Levofloxacin/Dextrose 5%-Water 750 MG in Premix Bag 1 BAG IV SCH (17:29)
[2021-08-23] MEDS: Morphine 2 MG/ML SYRINGE IVPUSH PRN (20:28)
[2021-08-23] MEDS: Melatonin 3 MG Tab PO SCH (20:31)
[2021-08-24] MEDS: Morphine 2 MG/ML SYRINGE IVPUSH PRN (02:29)
[2021-08-24] MEDS: Meropenem 1 GM in Sodium Chloride 0.9% 100 ML IV SCH ×3 (03:53→21:17)
[2021-08-24] MEDS: Albuterol/Ipratropium 3.0-0.5 MG/3 ML Neb Soln NEB SCH ×4 (07:00→21:45)
[2021-08-24] MEDS: Norepinephrine Bit/D5W Premix 4 MG in Premix Bag 1 BAG IV SCH ×3 (07:08→23:31)
[2021-08-24] MEDS: Albumin Human 25 GM in Premix Bag 1 BAG IV SCH (09:39)
[2021-08-24] MEDS: Dextrose 5%-Lact Ringers w/KCl 1,000 ML IV SCH (13:59)
[2021-08-24] MEDS: Pantoprazole 40 MG Vial IV SCH (17:21)
[2021-08-24] MEDS: Levofloxacin/Dextrose 5%-Water 750 MG in Premix Bag 1 BAG IV SCH (17:22)
[2021-08-24] MEDS: Melatonin 3 MG Tab PO SCH (20:40)
[2021-08-24] MEDS: Levothyroxine 100 MCG Vial IVPUSH SCH (21:43)
[2021-08-25] MEDS: Meropenem 1 GM in Sodium Chloride 0.9% 100 ML IV SCH (03:08)
[2021-08-25 05:30] LABS: ESTIMATED GFR 59 mL/min (>60)
[2021-08-25 05:34] LABS: TROPONIN I HIGH SENSITIVITY 122.6 pg/mL (<=60.3)
[2021-08-25] MEDS: Norepinephrine Bit/D5W Premix 4 MG in Premix Bag 1 BAG IV SCH (07:00)
[2021-08-25] MEDS: Albuterol/Ipratropium 3.0-0.5 MG/3 ML Neb Soln NEB SCH (07:16)
[2021-08-25 07:33] VITALS: BP 0/0
[2021-08-25 08:15] VITALS: PULSE 105
[2021-08-25] MEDS: Morphine 2 MG/ML SYRINGE IVPUSH PRN (09:30)
== END 2021-08-25 13:15 | disposition expired | DRG 682 ==
LOC: JP.ED 11:26 → JP.ICU 14:06
PROVIDERS: ADMIT Internal Medicine; ATTEND Internal Medicine
PROC: 30233N1 Transfusion of Nonautologous Red Blood Cells into Peripheral Vein, Percutaneous Approach (ICD-10-PCS; 2021-08-21)
PROC: 0W9930Z Drainage of Right Pleural Cavity with Drainage Device, Percutaneous Approach (ICD-10-PCS; 2021-08-23)
PROC: 02HV33Z Insertion of Infusion Device into Superior Vena Cava, Percutaneous Approach (ICD-10-PCS; principal; 2021-08-24)
PROC: 3E033XZ Introduction of Vasopressor into Peripheral Vein, Percutaneous Approach (ICD-10-PCS; 2021-08-25)
PROC: XW033N5 Introduction of Meropenem-vaborbactam Anti-infective into Peripheral Vein, Percutaneous Approach, New Technology Group 5 (ICD-10-PCS; 2021-08-25)
DX: N17.9 Acute kidney failure, unspecified (principal); L89.43 Pressure ulcer of contiguous site of back, buttock and hip, stage 3; J18.9 Pneumonia, unspecified organism; E43 Unspecified severe protein-calorie malnutrition; F05 Delirium due to known physiological condition; Z68.1 Body mass index [BMI] 19.9 or less, adult; R64 Cachexia; J93.9 Pneumothorax, unspecified; J94.8 Other specified pleural conditions; E87.1 Hypo-osmolality and hyponatremia; Z51.5 Encounter for palliative care; Z66 Do not resuscitate; Z20.822 Contact with and (suspected) exposure to COVID-19; E87.6 Hypokalemia; D53.9 Nutritional anemia, unspecified; R63.4 Abnormal weight loss; F17.200 Nicotine dependence, unspecified, uncomplicated; E03.9 Hypothyroidism, unspecified; F41.0 Panic disorder [episodic paroxysmal anxiety]; E83.42 Hypomagnesemia; E83.51 Hypocalcemia; I10 Essential (primary) hypertension; R34 Anuria and oliguria; R91.8 Other nonspecific abnormal finding of lung field; Z90.49 Acquired absence of other specified parts of digestive tract; Z79.899 Other long term (current) drug therapy; Z90.710 Acquired absence of both cervix and uterus; Z79.890 Hormone replacement therapy; Z87.828 Personal history of other (healed) physical injury and trauma; Z88.1 Allergy status to other antibiotic agents
CPT/HCPCS: 0241U; 36415; 36430; 36569; 36600; 51702; 70450; 70450-26; 71045; 71045-26; 71250; 71250-26; 71260; 74177; 80048; 80053; 81001; 82140; 82150; 82330; 82607; 82728; 82803; 82945; 83550; 83615; 83735; 83986; 84155; 84443; 84484; 85025; 85027; 85610; 86140; 86850; 86900; 86901; 86920; 86922; 87070; 87077; 87205; 88112; 88305; 89050; 94640; 96360; 96361; 99223; 99233; 99238; 99285; 99285-25; A9270-GY; C1751; C9113; J0610; J1940; J1953; J1956; J2185; J2250; J2270; J2704; J3411; J3475; J3480; J3490; J7030; J7620; P9016; P9047; Q9967